=== PATIENT | male | born 1985 | race Caucasian/White ===

== ENCOUNTER 2023-04-20 17:39 | Observation (INO) | payer BC, SELFPAY ==
--- NOTE | ~2023-04-20 | US_ITS ---
EXAMINATION: US carotid duplex BI DATE: 04/21/2023 14:17 INDICATION: Diplopia. Stroke. TECHNIQUE: Grayscale, color Doppler, and pulsed Doppler images of the cervical carotid arteries were obtained. The degree of vessel stenosis is placed in one of the following categories: normal, <50%, 5 0-69%, >=70% but less than near-occlusion, near-occlusion, or total occlusion. Note that percent sten osis relative to normal distal artery lumen diameter is indirectly measured from velocity measurement s as described by Mono, et al. Radiology 2003; 229:340-346. COMPARISON: CTA 04/21/23 FINDINGS: RIGHT: The right common carotid artery (CCA) peak systolic velocity (PSV) is 109 cm/s. The right internal ca rotid artery (ICA) PSV is 51 cm/s. The right ICA end-diastolic velocity (EDV) is 19 cm/s. The right I CA/CCA PSV ratio is 0.5. Grayscale and color Doppler images yield an estimate of <50% diameter reduct ion from plaque in the ICA. There is antegrade flow in the right vertebral artery. LEFT: The left CCA PSV is 117 cm/s. The left ICA PSV is 47 cm/s. The left ICA EDV is 23 cm/s. The left ICA/ CCA PSV ratio is 0.4. Grayscale and color Doppler images yield an estimate of <50% diameter reduction from plaque in the ICA. There is antegrade flow in the left vertebral artery. IMPRESSION: 1. <50% stenosis in the right internal carotid artery. 2. <50% stenosis in the left internal carotid artery. Reviewed, dictated and finalized at location E.
--- NOTE | ~2023-04-20 | XR_ITS ---
EXAMINATION: XR chest 2V Exam Date/Time: 04/20/2023 18:05 CDT HISTORY: HTN- Comparison: X-ray right RIBS with chest 09/24/2013. RESULT: Lines, tubes, and devices: None. Lungs and pleura: Clear. Cardiomediastinal silhouette: Stable. Other: No acute osseous or upper abdominal finding. IMPRESSION: No acute cardiopulmonary process. Reviewed, dictated and finalized at location K.
--- NOTE | ~2023-04-20 | CT_ITS ---
EXAMINATION: CTA brain carotid DATE: 04/20/2023 21:13 INDICATION: Intermittent left eye vision loss TECHNIQUE: Computed tomographic angiography (CTA) of the head was performed without and with 100 mL O mnipaque-350 intravenous contrast. CTA of the neck was performed with intravenous contrast. Automated exposure control and iterative reconstruction technique were employed. The dose-length product was 1 682.63 mGy-cm. Maximum intensity projection and volume rendered 3D-reconstructions were created by santos bauman technologist on a separate workstation. COMPARISON: None. FINDINGS: CT BRAIN: No acute large vessel infarct, intracranial hemorrhage, mass, or hydrocephalus. CTA HEAD: No large vessel occlusion, aneurysm, high flow vascular malformation, nidus or extravasation. Symmetr ic parenchymal enhancement. Patent cerebral veins. CTA NECK: Aortic arch and proximal great vessels: Normal arch anatomy. No plaque. Right common carotid, carotid bifurcation, and internal carotid artery: No plaque.There is 0% stenosi s of the proximal right internal carotid artery relative to normal distal artery lumen diameter (NASC ET criteria). Left common carotid, carotid bifurcation, and internal carotid artery: No plaque.There is 0% stenosis of the proximal left internal carotid artery relative to normal distal artery lumen diameter (NASCET criteria). Vertebral arteries: No significant plaque. Long segment uniform narrowing of the distal right vertebr al artery beginning at the level of the right C2 foramen, abruptly transitioning to normal after exit ing the right C1 foramen (the majority of the right V3 segment). Long segment uniform narrowing of th e distal left vertebral artery beginning at the entrance of the left C1 foramen and abruptly transiti oning to normal after exiting the left C1 foramen (the distal half of the left V3 segment). Vertebral arteries co-dominant. Other findings: None. IMPRESSION: No acute intracranial process. No large vessel infarct. No large vessel occlusion. No significant carotid stenosis. Bilateral V3 segment vertebral artery narrowing. In the absence of traumatic history, this most likel y represents hypoplasia/normal variant. Reviewed, dictated and finalized at location K. IMPRESSION: No acute intracranial process. No large vessel infarct. No large vessel occlusi on. No significant carotid stenosis. Bilateral V3 segment vertebral artery narrowing. 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
--- NOTE | ~2023-04-20 | MR_ITS ---
MRI of the brain Clinical History: Transient vision loss Technique: Axial and sagittal T1-weighted images were acquired. These were followed by axial T2-weigh nhan, diffusion weighted, gradient, and FLAIR images. Following intravenous administration of 13 cc Mu ltiHance gadolinium, T1-weighted fat-sat imaging was performed in the axial and coronal planes. Findings: There are several scattered small foci of restricted diffusion at the posterior, inferior r ight cerebellum, compatible small areas of acute infarct. No other restricted diffusion identified. N o intracranial hemorrhage or mass lesion seen. Ventricles and subarachnoid spaces are unremarkable. Orbits are unremarkable. Paranasal sinuses and m astoid air cells are clear. Major intracranial flow voids appear intact. Sagittal midline structures are intact. No abnormal postcontrast enhancement identified. IMPRESSION: Small focal areas of acute infarct in the right cerebellum, in the PICA distribution. Reviewed, dictated and finalized at location . IMPRESSION: Small focal areas of acute infarct in the right cerebellum, in the PICA distrib ution.
--- NOTE | ~2023-04-20 | CT_ITS ---
EXAMINATION: CTA brain carotid DATE: 04/21/2023 14:00 INDICATION: Diplopia. TECHNIQUE: Computed tomographic angiography (CTA) of the head was performed without and with 100 mL O mnipaque-350 intravenous contrast. CTA of the neck was performed with intravenous contrast. Automated exposure control and iterative reconstruction technique were employed. The dose-length product was 1 644.44 mGy-cm. Maximum intensity projection and volume rendered 3D-reconstructions were created by santos bauman technologist on a separate workstation. COMPARISON: CT 04/20/2023, brain MRI 04/21/2023 FINDINGS: HEAD CTA: There is no intracranial hemorrhage, acute infarction, or abnormal intracranial mass lesion . The ventricles are normal in size. 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 The paranasal sinu ses are clear. The mastoid air cells are normal. The orbits are normal. The vertebral arteries are co dominant. There is no significant stenosis of the basilar artery or posterior cerebral arteries. Ther e is no significant stenosis of intracranial internal carotid arteries or anterior or middle cerebral arteries. Anterior communicating artery is normal. The posterior communicating arteries are normal. There is no aneurysm. NECK CTA: There is mild scarring at the lung apices. There are no pathologically enlarged lymph nodes . 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 There is plaque and proximal left internal carotid artery. There is 0% s tenosis of the proximal right internal carotid artery relative to normal distal artery lumen diameter (NASCET criteria). There is 0% stenosis of the proximal left internal carotid artery relative to nor mal distal artery lumen diameter. There is mild cervical spondylosis. IMPRESSION: 1. No infarct visible by CT. 2. 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 3. 0% stenosis of the proximal internal carotid arteries relative to normal distal artery lumen diame ters (NASCET criteria). Reviewed, dictated and finalized at location E. IMPRESSION: 1. No infarct visible by CT. 2. 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 3. 0% stenosis of the proximal internal carotid arteries relative to normal dis lori artery lumen diameters (NASCET criteria).
[2023-04-20 17:44] VITALS: BP 155/117; PULSE 138; RESP 18; TEMP 35.5; O2SAT 98
--- NOTE | 2023-04-20 17:52 | ECG_ITS ---
Measurements Intervals [place] Rate: 120 P: 44 W[place]: 100 QRS: 39 QRSD: 80 T: 72 QT: 302 QTc: 427 Interpretive Statements SINUS TACHYCARDIA WITH SHORT WY INTERVAL NONSPECIFIC T-WAVE ABNORMALITY ABNORMAL ECG NO PREVIOUS ECG AVAILABLE FOR COMPARISON Electronically Signed On 04-21-2023 9:44:15 CDT by Harry Paredes M.D.
[2023-04-20 18:16] LABS: Basophils Absolute Auto 0.1 K/mm3 (0.0-0.1); Basophils Percent Auto 0.5 % (0.2-1.2); Eosinophils Absolute Auto 0.2 K/mm3 (0-0.3); Eosinophils Percent Auto 1.5 % (0-4.4); Hematocrit 53.3 % (42.0-52.0); Hemoglobin 18.3 g/dL (14.0-18.0); Immature Granulocyte Absolute 0.03 K/mm3 (0.00-0.031); Immature Granulocyte Percent A 0.3 % (0-0.5); Lymphocytes Absolute Auto 2.25 K/mm3 (0.9-3.2); Mean Corpuscular HGB Conc 34.3 g/dl (32-36); Mean Corpuscular Volume 87.2 fl (80-100); Monocytes Percent Auto 9.4 % (2.6-8.5); Neutrophils Absolute Auto 6.8 K/mm3 (1.3-6.7); Neutrophils Percent Auto 66.3 % (45.5-73.1); Platelet Count Result 423 k/mm3 (150-375); Red Blood Count 6.11 M/mm3 (4.6-6.20); Red Cell Distribution Width 12.1 % (11.5-14.5); White Blood Count 10.2 K/mm3 (4.5-10.0)
[2023-04-20 18:27] LABS: INR 0.9; Prothrombin Time 12.6 Seconds (11.1-14.7)
[2023-04-20 18:28] LABS: Partial Thromboplastin Time 28.5 SECONDS (22.3-36.8)
[2023-04-20 18:32] LABS: Alanine Aminotransferase 26 U/L (6-50); Albumin Level 5.2 g/dL (3.5-5.1); Alkaline Phosphatase 71 U/L (38-126); Anion Gap 12 mmol/L (8-16); Aspartate Amino Transferase 32 U/L (17-59); Bilirubin,Total 0.8 mg/dL (0.2-1.3); Blood Urea Nitrogen 16 mg/dL (9-20); Calcium 9.2 mg/dL (8.4-10.2); Carbon Dioxide 27 mmol/L (22-30); Chloride 98 mmol/L (98-107); Estimated CRCL calculation 87 ml/min; Estimated Glomerular Filt Rate > 60; Glucose 135 mg/dL (65-110); Lipase 97 U/L (23-300); Potassium 4.4 mmol/L (3.4-5.0); Sodium 137 mmol/L (137-145)
[2023-04-20 18:38] LABS: Troponin I < 0.012 ng/mL (0.000-0.034)
[2023-04-20 19:47] VITALS: BP 193/128; PULSE 117; RESP 19; TEMP 36.9; O2SAT 98
--- NOTE | 2023-04-20 19:50 | ED.RECABL ---
HPI - Recheck/Abnormal Lab/Rx General Chief Complaint: Recheck/Abnormal Lab/Rx Stated Complaint: high blood pressure Time Seen by Provider: 04/20/23 19:50 Source: patient and family Mode of arrival: ambulatory Limitations: no limitations History of Present Illness HPI narrative: 37 years old white male came to the emergency room with his mom by private car complaining of sudden onset of numbness all over his body 6 days ago. Lasted for few seconds. 1 day later been having intermittent blurry vision both eyes or when I, loss of vision mainly on the left eye, usually last 10 to 15 minutes each time. Last episode was today prior to arrival to the emergency room. Currently his main complaint is occipital headache. Patient still me that he been having elevated blood pressure for at least 10 years, never been treated for it, went [facility] yesterday and had negative CT scan of the head and did not like to go back to them again, and was discharged on hydrochlorothiazide and amlodipine. Patient does not have a family physician. Patient tested positive for COVID on April 02 with fever, chills, dry cough, loss of taste and smell and occipital headache. All the symptoms are resolved except the occipital headache which is still lingering Related Data Allergies Allergy/AdvReac Type Severity Reaction Status Date / Time No Known Allergies Allergy Verified 04/20/23 19:54 Review of Systems Review of Systems: All systems reviewed & are unremarkable except as noted in HPI and below Exam Narrative: General appearance: Well-developed, well-nourished Skin: Normal color Head: Normocephalic, nontraumatic Eyes: Clear conjunctiva ENT: Oropharynx normal, ears normal, nose normal Neck: Supple, nontender Chest and respiratory: Airway patent, no respiratory distress, no accessory muscle use Heart: Regular rate/rhythm Abdomen: Soft, nontender, no organomegaly, quiet bowel sounds Vascular: Normal peripheral pulses, normal capillary refill. 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 Blood pressure is 153/104, heart rate 100 bpm. Date: 04/20/23 Time: 23:57 Consultations Consultation #1: DR HIGHTOWER Fixture Builder at [facility] would love to see the patient but no bed available at this time and patient cannot be placed on waiting list. Date: 04/20/23 Time: 23:59 Vital Signs Vital signs: Vital Signs Temperature 35.5 C L 04/20/23 17:44 Pulse Rate 138 H 04/20/23 17:44 Respiratory Rate 18 04/20/23 17:44 Blood Pressure 155/117 H 04/20/23 17:44 Pulse Oximetry 98 04/20/23 17:44 Oxygen Delivery Room Air 04/20/23 17:44 Temperature 36.9 C 04/20/23 19:47 Pulse Rate 106 H 04/20/23 22:18 Respiratory Rate 15 04/20/23 22:18 Blood Pressure 157/114 H 04/20/23 22:18 Pulse Oximetry 100 04/20/23 22:18 Oxygen Delivery Room Air 04/20/23 19:47 MDM - Recheck/Abnormal Lab/Rx MDM Narrative Medical decision making narrative: 37 years old white male came to the emergency room by private car with intermittent left vision loss started 5 days ago. On average 2-3 times a day. Patient tested positive for COVID 18 days ago most of the symptoms are resolved except occipital headache. Currently patient complaining of occipital headache. Common causes of monocular transient loss of vision include thromboembolic or a stenotic vascular disease, vasospasm, retinal migraine, closed angle glaucoma, and papilledema, Work-up
[2023-04-20] MEDS: LABETALOL HCL INJ 100 MG/20 ML VIAL 20 MG IV PUSH ×2 (20:28→23:29)
[2023-04-20] MEDS: ASPIRIN 81 MG CHEWABLE TABLET 324 MG PO (20:28)
[2023-04-20 20:45] LABS: CRP < 0.5 mg/dL (<1.0)
[2023-04-20 20:52] LABS: D Dimer 0.28 ug/mL (<0.48)
[2023-04-20 21:18] LABS: Erythrocyte Sedimentation Rate 1 mm/hr (0-20)
[2023-04-20 21:46] LABS: Appearance Urine Clear (Clear); Bacteria Urine None Seen /hpf; Bilirubin Urine Negative (Negative); Blood Urine 1+ (Negative); Color Urine Yellow (Yellow); Glucose Urine UA Negative (Negative); Ketones Urine Negative (Negative); Leukocyte Esterase Ur Negative LEU/UL (Negative); Nitrate Urine Negative (Negative); Non Pathogenic Casts 0-2; Protein Urine 1+ mg/dL (Negative); RBC Urine 0-2 /hpf (0-2); Specific Grav Ur 1.025 (1.001-1.035); Squamous Epithelial Cell Urine None seen /hpf (Few); WBC Urine 0-5 /hpf
[2023-04-20 21:52] LABS: Add Urine Microscopic? YES
--- NOTE | 2023-04-20 21:55 | PC.NURSE ---
Visual acuity done by this RN. Pt 20/25 L eye, 20/25 R eye.
[2023-04-20 22:01] LABS: Amphetamine Screen Urine Negative (Negative); Barbiturate Screen Urine Negative (Negative); Benzodiazepines Screen Urine Negative (Negative); Cannabinoid Screen Urine Negative (Negative); Cocaine Screen Urine Negative (Negative); Methadone Screen Urine Negative (Negative); Opiate Screen Urine Negative (Negative); Phencyclidine Screen Urine Negative (Negative)
[2023-04-20 22:02] VITALS: BP 169/116; PULSE 108; RESP 15; O2SAT 100
[2023-04-20 22:14] LABS: Troponin I < 0.012 ng/mL (0.000-0.034)
[2023-04-20 22:18] VITALS: BP 157/114; PULSE 106; RESP 15; O2SAT 100
--- NOTE | 2023-04-20 23:27 | PC.NURSE ---
2239: [facility] transfer center called, declined pt d/t no bed availability 2245: [facility] transfer center called, also decline pt d/t no bed availability
--- NOTE | 2023-04-20 23:35 | PM.IMHP ---
H&P: HPI History of Present Illness Date/Time: 04/20/23 23:35 Chief Complaint: Patient came to the ER for evaluation for persistent intermittent blurry vision in both eyes Narrative: He is a very pleasant young [place] who was complaining of sudden onset of numbness all over his body 6 days ago that lasted for a few seconds. This episode was followed by intermittent blurry vision in both eyes with loss of vision mainly in the left eye usually lasting 10-15 minutes each time. Patient got concerned and went to [facility], where he was worked up with a CT scan and was sent home after negative workup. He had worsening of his symptoms today and decided to come back to the ER for evaluation. Workup was done which showed a negative CTA Head and Neck, but blood work findings were consistent with hyperviscosity syndrome which could explain his symptoms. He also gives a history of being diagnosed with COVID-19 on April 02 on home- testing kit. He complains of intermittent pain in the back of the head at times. He was given aspirin in the ER which helped with his symptoms. He is being admitted for medical management, observation and further evaluation by Oncology and Neurology. Review of Systems Review of Systems: Patient complains of intermittent blurred vision, transient vision loss more in left eye than right, intermittent pain in the back of her head. He denies any chest pain, palpitation, fever rigor chills, nausea and vomiting. All systems reviewed & are unremarkable except as noted in HPI and below PMFSH Past Medical History Medical History (Updated 04/21/23 @ 00:53 by Robson Begum MD) Post covid-19 condition, unspecified Sudden loss of vision Meds Home Medications and Allergies Home Medications Medication Instructions Recorded Confirmed Type amlodipine 5 mg tablet 5 mg PO DAILY 04/21/23 04/21/23 History hydrochlorothiazide 25 mg tablet 25 mg PO DAILY 04/21/23 04/21/23 History Allergies Allergy/AdvReac Type Severity Reaction Status Date / Time No Known Allergies Allergy Verified 04/20/23 19:54 Vital Signs Vital Signs - 24 hr 04/20/23 17:44 04/20/23 19:47 04/20/23 22:02 Temperature 35.5 C L 36.9 C Pulse Rate 138 H 117 H 108 H Respiratory Rate 18 19 15 Blood Pressure 155/117 H 193/128 H 169/116 H Pulse Oximetry 98 98 100 Oxygen Delivery Room Air Room Air 04/20/23 22:18 Temperature Pulse Rate 106 H Respiratory Rate 15 Blood Pressure 157/114 H Pulse Oximetry 100 Oxygen Delivery Exam Narrative: PHYSICAL EXAMINATION: Vital signs: Please see the chart. General physical exam: Well-developed, well-nourished, in no acute distress. Head/eyes: Atraumatic, EOMI, PERRLA. ENT: Moist mucous membranes, nasal passages clear. Neck: Supple, full range of motion, trachea midline. CVS: S1 + S2 + 0, regular rate and rhythm, no murmurs Respiratory: Bilaterally fair air entry in both lung roe, mild B/L crackles, symmetric chest expansion, no distress Abdomen: Soft, non-tender, bowel sounds +ve, no organomegaly Extremities: No clubbing, no cyanosis, no edema, no calf tenderness Musculoskeletal: Moves all, adequate range of motion, no muscle spasms Skin: Warm, dry, no jaundice, no cyanosis Neurological: Awake, alert, oriented x 3, cranial nerves II-XII intact, no focal neurological deficits Psychiatric: Normal mood, non suicidal H&P: Results Labs Labs: Short CBC 04/20/23 Range/Units 17:57 WBC 10.2 H (4.5-10.0) K/mm3 Hgb 18.3 H (14.0-18.0) g/dL Hct 53.3 H (42.0-52.0) % Plt Count 423 H (150-375) k/mm3 BMP 04/20/23 17:58 Sodium 137 Potassium 4.4 Chloride 98 Carbon Dioxide 27 BUN 16 Creatinine 1.00 Glucose 135 H Calcium 9.2 Cardiac Enzymes 04/20/23 04/20/23 Range/Units 17:58 21:40 Troponin I < 0.012 < 0.012 (0.000-0.034) ng/mL Liver Function 04/20/23 Range/Units 17:58 Total Bilirubin 0.8 (0.2-1.3) mg/dL AST 32
[2023-04-21] VITALS (7 sets, daily range): BP systolic 135–151; BP diastolic 90–104; PULSE 90–113; RESP 15–18; TEMP 36.6–36.9; O2SAT 97–100; BMI 22.6
--- NOTE | 2023-04-21 00:50 | ADMGEN ---
This patient, Harry Brantley, was admitted to Medical Room 252-01. Patient/family oriented to hospital policies and general routines including ID bracelet, bed and alarms, visiting hours, pain management, procedures, bathroom and other care routines, personal items, smoking policy, room service/diet, and visiting hours. Information on how to activate the Rapid Response Team has been discussed. Patient/Family are encouraged to report perceived risks to care and to ask questions if they do not understand what they are told or what they should do.
[2023-04-21 01:30] LABS: Troponin I < 0.012 ng/mL (0.000-0.034)
[2023-04-21 06:43] LABS: Basophils Absolute Auto 0.1 K/mm3 (0.0-0.1); Basophils Percent Auto 0.5 % (0.2-1.2); Eosinophils Absolute Auto 0.1 K/mm3 (0-0.3); Eosinophils Percent Auto 1.1 % (0-4.4); Hematocrit 52.5 % (42.0-52.0); Hemoglobin 17.2 g/dL (14.0-18.0); Immature Granulocyte Absolute 0.04 K/mm3 (0.00-0.031); Immature Granulocyte Percent A 0.3 % (0-0.5); Lymphocytes Percent Auto 22.3 % (18.3-44.2); Mean Corpuscular HGB Conc 32.8 g/dl (32-36); Mean Corpuscular Hemoglobin 29.7 pg (26-34); Mean Corpuscular Volume 90.7 fl (80-100); Mean Platelet Volume 10.1 fl (7.4-10.4); Monocytes Absolute Auto 1.1 K/mm3 (0.1-0.6); Monocytes Percent Auto 8.5 % (2.6-8.5); Neutrophils Absolute Auto 8.7 K/mm3 (1.3-6.7); Neutrophils Percent Auto 67.3 % (45.5-73.1); Platelet Count Result 350 k/mm3 (150-375); Red Blood Count 5.79 M/mm3 (4.6-6.20); Red Cell Distribution Width 12.2 % (11.5-14.5)
[2023-04-21 06:53] LABS: Anion Gap 13 mmol/L (8-16); Blood Urea Nitrogen 15 mg/dL (9-20); Carbon Dioxide 27 mmol/L (22-30); Chloride 97 mmol/L (98-107); Estimated CRCL calculation 96 ml/min; Estimated Glomerular Filt Rate > 60; Glucose 109 mg/dL (65-110); Magnesium 2.6 mg/dL (1.6-2.3); Phosphorus 5.2 mg/dL (2.5-4.5); Potassium 4.4 mmol/L (3.4-5.0); Sodium 137 mmol/L (137-145)
[2023-04-21] MEDS: hydroCHLOROthiazide 25 MG TABLET PO (08:05)
[2023-04-21] MEDS: amLODIPine BESYLATE 5 MG TABLET PO (08:05)
[2023-04-21] MEDS: ASPIRIN 81 MG CHEWABLE TABLET PO (08:05)
[2023-04-21] MEDS: ACETAMINOPHEN 325 MG TABLET 650 MG PO ×2 (08:22→13:18)
--- NOTE | 2023-04-21 09:35 | PM.IMPN ---
Progress Note: A&P Assessment and Plan (1) Acute stroke due to ischemia: Code(s): I63.9 - Cerebral infarction, unspecified Status: Acute Assessment and Plan: 04/21: Results of MRI as follows: Small focal areas of acute infarct in the right cerebellum, in the PICA distribution. (2) Hyperlipemia, mixed: Code(s): E78.2 - Mixed hyperlipidemia Status: Acute Assessment and Plan: Lipid panel added to morning labs shows elevated triglycerides elevated total cholesterol and LDL 155. Added rosuvastatin. (3) Hyperviscosity syndrome: Status: Acute Assessment and Plan: Possible polycythemia vera given elevation and hemoglobin hematocrit on initial CBC. Hematology consulted. (4) Transient vision disturbance: Code(s): H53.9 - Unspecified visual disturbance Status: Acute Assessment and Plan: Vision loss first in left eye, later recurrence in both eyes-worse on the left, now vision restored (5) Post covid-19 condition, unspecified: Code(s): U09.9 - Post COVID-19 condition, unspecified Status: Acute Assessment and Plan: Patient had positive home swab on April 02 and now new neurologic symptoms Time Spent With Patient Time with patient: Greater than 35 minutes Subjective Date/time seen: 04/21/23 09:35 Interval history: This is a 37-year-old male with a known past history hypertension who states that he recently had COVID a few weeks ago and then several days ago developed left-sided numbness and temporary vision loss that ultimately improved and then recurred with bilateral vision loss which has also improved. Patient went to another hospital negative CT scan was discharged for PCP follow-up. When symptoms recurred patient came to our emergency department was admitted for stroke workup. MRI results this morning show the patient has acute stroke in the right PICA region. Consults for Dr. Lockhart and Neurology due to suspected polycythemia vera and hyperviscosity syndrome as cause of recurrent neurologic symptoms. Patient denies any pain or current symptoms of vision disturbance, weakness, pain, difficulty swallowing or any other acute concerns. RN called at 1345 stated that patient had bilateral blurry vision. When he got up to go to the restroom he was severely off balance. Dr. Gaviria also made aware. CTA ordered. At 1420 I saw the CTA report showing vertebral artery dissections. Review of Systems Review of Systems: All systems reviewed & are unremarkable except as noted in HPI and below Exam Narrative: General physical exam: Well-developed, well-nourished, in no acute distress. Head/eyes: Atraumatic, EOMI, PERRLA. ENT: Moist mucous membranes, nasal passages clear. Neck: Supple, full range of motion, trachea midline. CVS: S1 + S2, regular rate and rhythm, no murmurs Respiratory: Bilaterally fair air entry in both lung roe, symmetric chest expansion, no distress Abdomen: Soft, non-tender, bowel sounds, no organomegaly Extremities: No clubbing, no cyanosis, no edema, no calf tenderness Musculoskeletal: Moves all extremities, adequate range of motion, no muscle spasms Skin: Warm, dry, no jaundice, no cyanosis Neurological: Awake, alert, oriented x 3, no focal neurological deficits, NIH stroke scale 0 Psychiatric: Normal mood, normal affect Objective Data Vital Signs Vital Signs: Vital Signs - 24 hr 04/20/23 17:44 04/20/23 19:47 04/20/23 22:02 Temperature 35.5 C L 36.9 C Pulse Rate 138 H 117 H 108 H Respiratory Rate 18 19 15 Blood Pressure 155/117 H 193/128 H 169/116 H Pulse Oximetry 98 98 100 Oxygen Delivery Room Air Room Air 04/20/23 22:18 04/21/23 00:21 04/21/23 00:37 Temperature Pulse Rate 106 H 99 101 H Respiratory Rate 15 15 18 Blood Pressure 157/114 H 151/97 H 148/104 H Pulse Oximetry 100 98 100 Oxygen Delivery 04/21/23 01:04 04/21/23 01:38 04/21/23 04:00 Temperature 36.6 C 36.7 C Pulse Rate 99 101 H 90 Re
[2023-04-21 10:23] LABS: Cholesterol 242 mg/dL (0-200); HDL Direct 46 mg/dL; Triglycerides 210 mg/dL (<150)
[2023-04-21 10:34] LABS: LDL Cholesterol Direct 155 mg/dL
[2023-04-21 10:56] LABS: Hemoglobin A1C 5.2 % (<5.7)
[2023-04-21] MEDS: ENOXAPARIN 40 MG/0.4 ML SYRINGE SUB-Q (11:03)
[2023-04-21] MEDS: ROSUVASTATIN 20 MG TABLET PO (11:03)
--- NOTE | 2023-04-21 11:33 | WPDNEURCNPN ---
Assessment and Plan Assessment and plan (1) Acute stroke due to ischemia: Code(s): I63.9 - Cerebral infarction, unspecified Status: Acute (2) Hyperviscosity syndrome: Status: Acute (3) Hyperlipemia, mixed: Code(s): E78.2 - Mixed hyperlipidemia Status: Acute (4) Hypertension: Code(s): I10 - Essential (primary) hypertension Status: Acute Plan Mr. Brantley is a 37 year old male who presented due to episode of full body numbness and transient episodes of visual disturbances. Ulimately found to have R cerebellar infarct. Etiology could be due to hyperviscosity given elevated hgb. He also has a history of recent COVID infection which could have been a contributing factor. Blood pressure was also quite high on admission, which is typically the cause of small vessel stroke. - Continue Aspirin 81mg daily - Add Plavix 75mg daily - Surface echocardiogram with bubble study - LDL is 155, goal <70; will need statin - Will check hypercoagulability labs to rule out other causes of early stroke Consult date: 04/21/23 Reason for consult: Stroke HPI: Harry Brantley is a 37 year old male with no significant past medical history presenting for evaluation of numbness and visual disturbance. About a week ago, patient had sudden onset full body numbness that lasted several seconds. He denied any focal weakness or speech changes. Afterwards he developed blurriness of the vision and loss of vision in the left eye intermittently, for about 10-15 minutes at a time. Patient was diagnosed with COVID infection about two weeks ago. He presented to the Emergency department yesterday due to persistence of the visual symptoms. He also complained of an occipital headache. His blood pressure in the ER was in the 190s systolic, which was treated with labetalol. CT head was negative for acute process. CTA/brain carotid showed bilateral V3 segment narrowing but no stenosis or occlusion in ano other arteries. LDL level is 155. A1c is 5.2. Patient does not smoke. MRI brain showed acute infarct in the right cerebellum. Patient is reporting some balance issues and feeling unsteadiness. He is no longer having numbness or visual changes since he has been admitted. Blood pressure has been more stable as well. Hgb on admission was 18.3 so he is being worked up for hyperviscosity. Patient and his mother deny any family history of abnormal clotting. There is no family history of recurrent miscarriages or early stroke/LA. Review of Systems Constitutional: Constitutional: Denies chills, Denies fever(s) and Denies weight loss Eyes: Eyes: Denies diplopia and Denies loss of vision ENT: Denies dizziness, Denies hearing loss and Denies tinnitus Cardiovascular: Cardiovascular: Denies chest pain, Denies syncope and Denies dyspnea Respiratory: Respiratory: Denies cough, Denies dyspnea and Denies wheezing Gastrointestinal: Gastrointestinal: Denies abdominal pain, Denies change in bowel habits and Denies vomiting Genitourinary: Genitourinary: Denies urinary incontinence Musculoskeletal: Musculoskeletal: Denies arthralgias and Denies joint swelling Integumentary/Breasts: Skin/Breast: Denies new lesions and Denies rash Neurologic: Reports as per HPI, Denies dizziness, Denies syncope and Denies loss of vision Psychiatric: Psychiatric: Denies anxiety and Denies depression Endocrine: Endocrine: Denies cold intolerance and Denies heat intolerance Hematologic/Lymphatic: Hematologic/Lymphatic: Denies easy bleeding and Denies easy bruising Allergic/Immunologic: Allergic/Immunologic: Denies no additional allergic/immunologic complaints and Denies wheezing PMFSH Past Medical History Medical History Post covid-19 condition, unspecified Sudden loss of vision Social History Social History Smoking status: Never smoker Alcohol intake: never Shook
[2023-04-21 14:07] LABS: Glucose Point of Care 150 mg/dl (65-105)
--- NOTE | 2023-04-21 16:08 | PM.TDS ---
Transfer Discharge Sum: Prov Provider Date of admission: 04/20/23 23:33 Primary care physician: RESIDENTIAL TREATMENT COUNSELOR PHYSICIAN Admitting clinician: Robson Begum MD Consults: 04/20/23 23:36 Consult to Physician Routine Comment: Consulting Provider: Rohan Howard Reason for consultation: Monocular transient loss of vision Has provider been notified: Yes Consult to Physician Routine Comment: for 04.21.23 @ 0740--/us Consulting Provider: Armando Lockhart pharmacy account director/MD group to consult: Call Dr. Lockhart at 7 AM Reason for consultation: Hyperviscosity syndrome, polycythemia vera Has provider been notified: Yes Attending physician on discharge: Camila Lisa Discharging clinician: [place] Anticipated date of transfer: 04/21/23 Receiving physician/facility: [facility] Dr. Syed Chance in ER and Dr. Lucero with Stroke Neurology DS: Admitting Diagnosis Discharge Date 04/21/2023 Admitting Diagnosis Polycythemia vera Hyperviscosity syndrome Vision disorder Post COVID-19 condition unspecified Sudden loss of vision DS: Discharge Diagnosis Discharge Diagnosis (1) Dissecting hemorrhage of both vertebral arteries: Code(s): I77.74 - Dissection of vertebral artery Status: Acute (2) Cerebellar stroke, acute: Code(s): I63.9 - Cerebral infarction, unspecified Status: Acute (3) Hypertension: Code(s): I10 - Essential (primary) hypertension Status: Acute (4) Transient vision disturbance: Code(s): H53.9 - Unspecified visual disturbance Status: Acute (5) Hyperviscosity syndrome: Status: Acute (6) Post covid-19 condition, unspecified: Code(s): U09.9 - Post COVID-19 condition, unspecified Status: Acute Transfer Discharge Sum: Med Medications Active and Home Medications: Home Medications amlodipine 5 mg tablet 5 mg PO DAILY 04/21/23 [History Confirmed 04/21/23] hydrochlorothiazide 25 mg tablet 25 mg PO DAILY 04/21/23 [History Confirmed 04/21/23] Active Medications Acetaminophen (Acetaminophen 325 Mg Tablet) 650 mg PO Q4H PRN PRN Reason: Pain or Fever Last Admin: 04/21/23 13:18 Dose: 650 mg Amlodipine Besylate (Amlodipine Besylate 5 Mg Tablet) 5 mg PO DAILY [facility] Last Admin: 04/21/23 08:05 Dose: 5 mg Aspirin (Aspirin 81 Mg Chewable Tablet) 81 mg PO DAILY@0800 [facility] Last Admin: 04/21/23 08:05 Dose: 81 mg Clopidogrel Bisulfate (Clopidogrel Bisulfate 75 Mg Tablet) 75 mg PO QAM [facility] Stop: 05/13/23 09:00 Enoxaparin Sodium (Enoxaparin 40 Mg/0.4 Ml Syringe) 40 mg SUB-Q DAILY [facility] Last Admin: 04/21/23 11:03 Dose: 40 mg Hydrochlorothiazide (Hydrochlorothiazide 25 Mg Tablet) 25 mg PO DAILY [facility] Last Admin: 04/21/23 08:05 Dose: 25 mg Perflutren Lipid Microsphere (Perflutren Lipid Microspheres 1.5 Ml Vial Diluted To 10 Ml Total Volume) 0 ml IV PUSH ONCE PRN; Protocol PRN Reason: adequate visualization Stop: 04/24/23 09:46 Rosuvastatin Calcium ([facility]astatin 20 Mg Tablet) [facility] Admin: 04/21/23 11:03 Dose: 20 mg Transfer Discharge Sum: Hosp Hospital Course Hospital course: Harry Brantley is a 37 year old male admitted to the hospital for stroke rule out and Hematology consult for transient vision loss initially in the left with accompanied full body numbness that happened within the last week and subsequent episode of bilateral vision loss that also recovered without intervention. Patient had MRI 1st this morning which did show small areas right cerebellar stroke. Patient was initially feeling well had no symptoms ongoing and no ataxia. Patient did receive aspirin upon admission. Lipid panel showed hyperlipidemia. Patient started on rosuvastatin. Neurology saw patient recommended starting Plavix and she ordered a 2nd CT angiogram of the head neck which resulted in bilateral vertebral artery dissections with total occlusion the right and severe stenosis of the left. When compared to
[2023-04-24 12:29] LABS: Factor VIII Activity 138 % normal (50-180)
[2023-04-24 20:27] LABS: Homocysteine 9.4 umol/L (<11.4)
[2023-04-25 18:35] LABS: Lipoprotein A <10 nmol/L (<75)
[2023-04-25 20:18] LABS: Antithrombin III Activity 111 % normal (80-135)
[2023-04-25 21:51] LABS: Lupus dRVVT Screen 33 sec (<=45); PTT-LA Screen 34 sec (<=40)
[2023-04-29 22:13] LABS: Factor V (Leiden) Mutation NEGATIVE
[2023-05-04 04:47] LABS: Anti Cardio Antibody IgM <2.0 MPL-U/mL (<20.0); Anti Cardiolipin Antibody IgA <2.0 APL-U/mL (<20.0); Anti Cardiolipin Antibody IgG <2.0 GPL-U/mL (<20.0)
== END 2023-04-21 15:35 ==
LOC: ANHED 04-21 00:03 → ANH2MED 04-21 00:06
PROVIDERS: Nurse Practitioner; Student in an Organized Health Care Education/Training Program; Admitting Provider Family Medicine; Emergency Provider Emergency Medicine; Visit Provider Family Medicine
DX: I63.9 Cerebral infarction, unspecified (principal); I10 Essential (primary) hypertension; D75.1 Secondary polycythemia; U09.9 Post COVID-19 condition, unspecified; H53.9 Unspecified visual disturbance; E78.2 Mixed hyperlipidemia; R94.31 Abnormal electrocardiogram [ECG] [EKG]; Z79.899 Other long term (current) drug therapy
CPT/HCPCS: 36415; 70496; 70498; 70553; 71046; 80048; 80053; 80061; 80307; 81001; 81240; 81241; 81291; 82948; 83036; 83090; 83690; 83695; 83735; 84100; 84484; 85025; 85240; 85300; 85303; 85306; 85380; 85610; 85613; 85652; 85730; 86140; 86146; 86147; 87040; 93005; 93880; 96372; 96374; 96376; 99285; A9270; A9577; G0378; J1650; Q9967

== ENCOUNTER 2023-04-28 13:15 | Emergency (ER) | payer BC, SELFPAY ==
--- NOTE | ~2023-04-28 | XR_ITS ---
EXAMINATION: XR chest 2V DATE: 04/28/2023 15:05 INDICATION: Cough. Abdominal pain. TECHNIQUE: Frontal and lateral views of the chest were obtained. COMPARISON: Chest 2 views 04/20/2023, CT abdomen and pelvis 04/28/2023 FINDINGS: There is mild atelectasis at left lung base. No pleural effusion or pneumothorax. The heart size is normal. IMPRESSION: 1. Mild atelectasis at left lung base. Reviewed, dictated and finalized at location E.
--- NOTE | ~2023-04-28 | CT_ITS ---
EXAMINATION: CT abdomen pelvis wo con DATE: 04/28/2023 14:49 INDICATION: Flank pain TECHNIQUE: Computed tomography (CT) of the abdomen and pelvis was performed without intravenous contr ast. The dose-length product (DLP) was 273.62 mGy-cm. Automated exposure control and iterative recons truction technique were employed. COMPARISON: None FINDINGS: Minimal dependent atelectasis is present in the lung bases. The heart size is normal. There is a small sliding hiatal hernia. The spleen, pancreas, gallbladder, and adrenal glands are normal. The kidneys are unremarkable. No stones are identified in the kidneys, ureters, or bladder. No hydron ephrosis or hydroureter. The appendix is normal. No pathologically enlarged abdominal or pelvic lymph nodes are identified. No free intraperitoneal gas or evidence of bowel obstruction. There is a tiny umbilical hernia containing fat. IMPRESSION: 1. No CT correlate for the patient's symptoms. Reviewed, dictated and finalized at location L.
[2023-04-28 13:23] VITALS: BP 141/98; PULSE 105; RESP 18; TEMP 37.2; O2SAT 97
--- NOTE | 2023-04-28 13:57 | ED.ABDPAIN ---
HPI - Abdominal Pain General Chief Complaint: Abdominal Pain Stated Complaint: abdominal pain Time Seen by Provider: 04/28/23 13:43 History of Present Illness HPI narrative: Patient is a 37-year-old male with history of recent bilateral vertebral artery dissection complicated by several posterior strokes here with left-sided flank pain and hematuria. Patient states that the flank pain began this morning around 5 am, located on the left side, radiating to the abdomen. He noted pain worsened with urinating. he notes that it feels similar to prior kidney stones in the past. He had many kidney stones as a child and then most recently on the right side not requiring intervention. He does note that he had some dark brown urine today after symptoms began. He denies any fever chills. He did take some Tylenol at home and the pain seemed to resolve. They did contact a PCP who he is establishing care with tomorrow and they recommended that he come into the emergency department for evaluation given he was recently started on Eliquis. Mother also notes patient had a cough this morning, which seems to have resolved. Related Data Home Medications Medication Instructions Recorded Confirmed amlodipine 5 mg tablet 5 mg PO DAILY 04/21/23 04/21/23 hydrochlorothiazide 25 mg tablet 25 mg PO DAILY 04/21/23 04/21/23 Allergies Allergy/AdvReac Type Severity Reaction Status Date / Time No Known Allergies Allergy Verified 04/28/23 13:32 Review of Systems Review of Systems: CONSTITUTIONAL: Denies fever, chills, or sweats. EYES: Denies visual changes, redness, or discharge. ENT: Denies rhinorrhea, congestion, sore throat, or otalgia. CARDIOVASCULAR: Denies chest pain, palpitations, or edema. RESPIRATORY: cough, no dyspnea. GASTROINTESTINAL: Left flank pain, Denies nausea, vomiting, or diarrhea. GENITOURINARY: Hematuria, no dysuria SKIN: Denies rash or itching. MUSCULOSKELETAL: Denies back pain, joint pain, or myalgia. NEUROLOGIC: Denies headache, numbness, or weakness. PSYCHIATRIC: Denies anxiety or depression. [facility] Past Medical History Medical History Post covid-19 condition, unspecified Sudden loss of vision Social History Social History Smoking status: Never smoker Alcohol intake: never Substance use: never Substance use type: does not use Lack of Transportation: No Lack of Food: Never True Current Housing: I Have Housing Concerned About Future Housing: No Difficulty Paying Gas/Electric Bills: No Difficulty Paying for Meds: No Currently Unemployed: No Education: Associate Degree Difficulty w/ Childcare or Family Care: No Spiritual care concerns: No Exam Narrative: GENERAL: Well-appearing, well-nourished, and in no acute distress. HEAD: Normocephalic, atraumatic. EYES: PERRLA and EOMI. ENT: Nares clear. Mucous membranes moist. NECK: Supple. CHEST: Clear to auscultation. No respiratory distress. HEART: Regular rate and rhythm. Normal peripheral pulses. ABDOMEN: Soft, nontender, nondistended. No CVA tenderness. Bruising over anterior abdomen consistent with sub q injections during prior hospitalization EXTREMITIES: Normal range of motion. No edema. SKIN: Warm, dry, no rash. NEURO: No focal deficits. Alert and oriented x3. PSYCH: Normal mood and affect. Course Course Emergency Course: Chart review performed. Patient is here with abdominal pain and hematuria. Was reportedly discharged from [facility] Tuesday night after a stroke, started on Eliquis, Lipitor, Coreg, lisinopril. He does have a history of kidney stone. Patient seen evaluated, nontoxic appearing. Patient is currently asymptomatic. Concern for possible UTI versus nephrolithiasis. Will order CT scan as well as chest x-ray given patient's mother did endorse a cough this morning as well. CBC grossly within normal limit
[2023-04-28 14:03] VITALS: BP 138/99; PULSE 96; RESP 12; O2SAT 98
[2023-04-28 14:14] LABS: Basophils Absolute Auto 0.1 K/mm3 (0.0-0.1); Basophils Percent Auto 0.7 % (0.2-1.2); Eosinophils Absolute Auto 0.4 K/mm3 (0-0.3); Hematocrit 44.9 % (42.0-52.0); Hemoglobin 15.1 g/dL (14.0-18.0); Immature Granulocyte Absolute 0.02 K/mm3 (0.00-0.031); Immature Granulocyte Percent A 0.2 % (0-0.5); Lymphocytes Percent Auto 15.5 % (18.3-44.2); Mean Corpuscular HGB Conc 33.6 g/dl (32-36); Mean Corpuscular Hemoglobin 29.6 pg (26-34); Mean Platelet Volume 9.8 fl (7.4-10.4); Monocytes Absolute Auto 0.7 K/mm3 (0.1-0.6); Monocytes Percent Auto 6.9 % (2.6-8.5); Neutrophils Absolute Auto 7.5 K/mm3 (1.3-6.7); Neutrophils Percent Auto 72.7 % (45.5-73.1); Platelet Count Result 348 k/mm3 (150-375); Red Cell Distribution Width 12.1 % (11.5-14.5); White Blood Count 10.3 K/mm3 (4.5-10.0)
[2023-04-28 14:22] LABS: Appearance Urine Clear (Clear); Bacteria Urine None Seen /hpf; Bilirubin Urine Negative (Negative); Blood Urine 3+ (Negative); Color Urine Yellow (Yellow); Glucose Urine UA Negative (Negative); Ketones Urine Negative (Negative); Leukocyte Esterase Ur Trace LEU/UL (Negative); Nitrate Urine Negative (Negative); Non Pathogenic Casts 0-2; Protein Urine 1+ mg/dL (Negative); RBC Urine >100 /hpf (0-2); Specific Grav Ur 1.017 (1.001-1.035); Squamous Epithelial Cell Urine None seen /hpf (Few); WBC Urine 0-5 /hpf; pH Urine 6.5 (5.0-9.0)
[2023-04-28 14:23] LABS: Alanine Aminotransferase 51 U/L (6-50); Albumin Level 4.5 g/dL (3.5-5.1); Alkaline Phosphatase 67 U/L (38-126); Anion Gap 9 mmol/L (8-16); Aspartate Amino Transferase 34 U/L (17-59); Bilirubin,Total 0.6 mg/dL (0.2-1.3); Blood Urea Nitrogen 13 mg/dL (9-20); Carbon Dioxide 30 mmol/L (22-30); Chloride 101 mmol/L (98-107); Estimated CRCL calculation 88 ml/min; Estimated Glomerular Filt Rate > 60; Glucose 122 mg/dL (65-110); Lipase 99 U/L (23-300); Sodium 140 mmol/L (137-145)
[2023-04-28 14:39] LABS: Add Urine Microscopic? YES
[2023-04-28 14:52] VITALS: BP 143/99; PULSE 99; RESP 16; O2SAT 98
[2023-04-28 15:53] VITALS: BP 137/95; PULSE 100; RESP 18; O2SAT 98
== END 2023-04-28 15:54 | disposition home or self-care (01) ==
PROVIDERS: Emergency Medicine; Emergency Provider Student in an Organized Health Care Education/Training Program
DX: R31.0 Gross hematuria (principal); R10.9 Unspecified abdominal pain; U09.9 Post COVID-19 condition, unspecified; Z86.73 Personal history of transient ischemic attack (TIA), and cerebral infarction without residual deficits; Z87.442 Personal history of urinary calculi
CPT/HCPCS: 36415; 71046; 74176; 80053; 81001; 83690; 85025; 99284

== ENCOUNTER 2023-05-10 09:28 | Emergency (ER) | payer BC, SELFPAY ==
--- NOTE | ~2023-05-10 | CT_ITS ---
CT ANGIOGRAM NECK AND HEAD History: CVA. Technique: Serial spiral axial images through the head and neck were obtained during arterial phase I V injection of 100 cc of Omnipaque 350. 3-D postprocessing and MIP images were then reconstructed on the remote workstation. Dose reduction technique was used on this scan by utilizing automated exposur e control and iterative reconstruction technique. The dose-length product (DLP) was 1133.60 mGy-cm. COMPARISON: 04/21/2023 CTA neck findings: There is stenosis of the distal left vertebral artery, similar to prior exam, com patible with vertebral artery dissection in this region (series 5 images [id number]). The right vertebra l artery occlusion seen on prior exam is improved, with now high-grade stenosis of the distal right v ertebral artery, consistent with vertebral artery dissection (axial images 178-201). The common carotid, internal carotid, and external carotid arteries are patent. No large vessel occlu kendrick. The proximal right internal carotid artery demonstrates 0% stenosis relative to the normal dist al artery lumen diameter. The proximal left internal carotid artery demonstrates 0% stenosis relative to the normal distal artery lumen diameter. CTA head findings: Distal vertebral arteries, basilar artery, and posterior cerebral arteries are pat ent. Distal internal carotid arteries, middle cerebral arteries, and anterior cerebral arteries are p atent. No large vessel occlusion. No stenosis or aneurysm. Impression: Bilateral distal vertebral artery dissections, as noted above. There is high-grade stenosis of the di stal right vertebral artery as opposed to complete occlusion which was present on prior exam. Left di stal vertebral or dissection is similar to prior exam. Reviewed, dictated and finalized at location M. Impression: Bilateral distal vertebral artery dissections, as noted above. There is high-gr mare stenosis of the distal right vertebral artery as opposed to complete occlus ion which was present on prior exam. Left distal vertebral or dissection is sim ilar to prior exam.
--- NOTE | ~2023-05-10 | CT_ITS ---
EXAMINATION: CT brain wo con INDICATION: Visual disturbance, headache COMPARISON: 04/21/2023 TECHNIQUE: Standard unenhanced head CT. The dose-length product (DLP) was 605.33 mGy-cm. The mA was a djusted according to patient size. Iterative reconstruction technique was employed. FINDINGS: No intracranial hemorrhage or abnormal mass lesion. There is a small area of hypoattenuatio n in the right cerebellum, consistent with small infarct described on recent MRI. The ventricles are normal. No abnormal mass effect or midline shift. The jeffries-white matter differentiation is normal. Th e basal cisterns are patent. The orbits are normal. The paranasal sinuses, mastoids and calvarium are normal. IMPRESSION: 1. Small area of hypoattenuation in the right cerebellum, consistent with known infarct. Reviewed, dictated and finalized at location L.
[2023-05-10 09:37] LABS: Glucose Point of Care 109 mg/dl (65-105)
--- NOTE | 2023-05-10 09:38 | ECG_ITS ---
Measurements Intervals [place] Rate: 91 P: 45 MN: 137 QRS: 25 QRSD: 85 T: 18 QT: 341 QTc: 421 Interpretive Statements SINUS RHYTHM NORMAL ECG COMPARED TO ECG 04/20/2023 18:02:08 SINUS RHYTHM NOW PRESENT Electronically Signed On 05-10-2023 10:25:37 CDT by Piter Wise D.O.
--- NOTE | 2023-05-10 09:39 | ED.NEUROSD ---
HPI - Neuro Symptoms/Deficit General Chief Complaint: Suspected CVA Stated Complaint: stroke Time Seen by Provider: 05/10/23 09:32 History of Present Illness HPI Narrative: 37-year-old male present emergency department for evaluation of blurred vision. Patient was initially seen on 04/20 and was admitted for a TIA/CVA work-up. CT head and CT brain carotid shows dissections of the distal vertebral arteries with focal total occlusion of the right and severe stenosis of the left. Patient did have some worsening symptoms. Patient was transferred to [facility]. Patient states he had no cervical intervention but has started on multiple medications that he is not sure what they are but states that he is currently on Eliquis. Patient did have follow-up with his primary care physician and is scheduled to follow-up with neurology in June. Patient states when he woke up this morning he was having some blurred vision in his right eye. The blurred vision in the right eye has completely resolved. Patient states also for short period time he had some blurred vision in the left eye and had tunnel vision to left eye but states this is also since resolved. Upon arrival to the ED patient was sent to CT/CTA brain carotid Related Data Home Medications Medication Instructions Recorded Confirmed amlodipine 5 mg tablet 5 mg PO DAILY 04/21/23 04/21/23 hydrochlorothiazide 25 mg tablet 25 mg PO DAILY 04/21/23 04/21/23 Allergies Allergy/AdvReac Type Severity Reaction Status Date / Time No Known Allergies Allergy Verified 05/10/23 10:08 Review of Systems Review of Systems: All systems reviewed & are unremarkable except as noted in HPI and below PMFSH Past Medical History Medical History Post covid-19 condition, unspecified Sudden loss of vision Social History Social History Smoking status: Never smoker Alcohol intake: never Substance use: never Substance use type: does not use Lack of Transportation: No Lack of Food: Never True Current Housing: I Have Housing Concerned About Future Housing: No Difficulty Paying Gas/Electric Bills: No Difficulty Paying for Meds: No Currently Unemployed: No Education: Associate Degree Difficulty w/ Childcare or Family Care: No Spiritual care concerns: No Exam Narrative: APPEARANCE: Well appearing, no pain, no distress, well-nourished. HEAD: normocephalic, atraumatic. EYES: PERRLA/EOMI, conjunctivae clear. No visual field deficit NOSE: Normal no drainage EARS:TMS clear with good light reflex. THROAT: Pharynx clear, no exudate. NECK: Supple. No adenopathy, no masses. RESPIRATORY: Airway patent, respirations nonlabored. Clear to auscultation bilaterally, no rales, rhonchi, wheezing. CARDIOVASCULAR: Regular rate and rhythm without murmurs rubs or gallops. ABDOMINAL: Soft, nontender, nondistended, normal bowel sounds MUSCULOSKELETAL: Moves all extremities. Strength/ROM intact, No edema, No calf tenderness. NEURO: Alert. Cranial nerves II through XII intact. Grossly intact, no drift, no ataxia, normal strength and reflexes SKIN: Warm, dry. Normal Color Course Course Emergency Course: 37-year-old male present emergency department for evaluation of visual changes. Patient was initially seen on 04/20 for evaluation of vision changes and was diagnosed with a vertebral artery dissection. Patient has been compliant with his medications but states he had vision changes this morning. At time of examination patient reports that his vision changes are resolved. CT without contrast showed a known cerebellar infarct. CTA showed known vertebral artery dissection with possible improvement of the distal right vertebral artery. Case was discussed with neurology at [facility], Dr. Melara, they were comfortable with the work-up and had no suggestions on medication changes. They recommended that he
[2023-05-10 09:48] LABS: Estimated Glomerular Filt Rate > 60
[2023-05-10 09:58] LABS: Alanine Aminotransferase 64 U/L (6-50); Alkaline Phosphatase 79 U/L (38-126); Anion Gap 6 mmol/L (8-16); Aspartate Amino Transferase 45 U/L (17-59); Bilirubin,Total 0.9 mg/dL (0.2-1.3); Blood Urea Nitrogen 14 mg/dL (9-20); Calcium 9.2 mg/dL (8.4-10.2); Carbon Dioxide 32 mmol/L (22-30); Chloride 101 mmol/L (98-107); Estimated Glomerular Filt Rate > 60; Glucose 103 mg/dL (65-110); Potassium 4.5 mmol/L (3.4-5.0); Sodium 139 mmol/L (137-145)
[2023-05-10 10:01] VITALS: BP 134/92; PULSE 97; RESP 15; O2SAT 100
[2023-05-10 10:02] VITALS: BP 134/92; PULSE 102; RESP 15; O2SAT 100
[2023-05-10 10:03] VITALS: PULSE 98; RESP 17; O2SAT 99
[2023-05-10 10:06] LABS: Basophils Absolute Auto 0.1 K/mm3 (0.0-0.1); Basophils Percent Auto 0.5 % (0.2-1.2); Eosinophils Absolute Auto 0.2 K/mm3 (0-0.3); Eosinophils Percent Auto 2.3 % (0-4.4); Hematocrit 40.3 % (42.0-52.0); Hemoglobin 13.5 g/dL (14.0-18.0); Immature Granulocyte Absolute 0.03 K/mm3 (0.00-0.031); Immature Granulocyte Percent A 0.3 % (0-0.5); Lymphocytes Absolute Auto 1.41 K/mm3 (0.9-3.2); Mean Corpuscular HGB Conc 33.5 g/dl (32-36); Mean Corpuscular Hemoglobin 30.1 pg (26-34); Monocytes Absolute Auto 0.5 K/mm3 (0.1-0.6); Monocytes Percent Auto 5.2 % (2.6-8.5); Neutrophils Absolute Auto 7.2 K/mm3 (1.3-6.7); Neutrophils Percent Auto 76.7 % (45.5-73.1); Platelet Count Result 285 k/mm3 (150-375); Red Blood Count 4.48 M/mm3 (4.6-6.20); White Blood Count 9.4 K/mm3 (4.5-10.0)
[2023-05-10 10:07] VITALS: BP 134/92; PULSE 96; RESP 18; O2SAT 100
[2023-05-10 10:22] LABS: INR 1.3; Partial Thromboplastin Time 31.1 SECONDS (22.3-36.8); Prothrombin Time 17.1 Seconds (11.1-14.7)
[2023-05-10 10:40] LABS: Appearance Urine Clear (Clear); Bilirubin Urine Negative (Negative); Blood Urine Negative (Negative); Color Urine Yellow (Yellow); Glucose Urine UA Negative (Negative); Ketones Urine Negative (Negative); Leukocyte Esterase Ur Negative LEU/UL (Negative); Nitrate Urine Negative (Negative); Protein Urine Negative (Negative); Urobilinogen Urine 0.2 mg/dL (<2.0)
[2023-05-10 10:55] LABS: Add Urine Microscopic? NO; Specific Grav Ur 1.057 (1.001-1.035)
[2023-05-10 11:15] VITALS: BP 126/89; PULSE 95; RESP 18; O2SAT 99
[2023-05-10 12:00] VITALS: BP 127/88; PULSE 97; RESP 17; O2SAT 99
== END 2023-05-10 12:04 | disposition home or self-care (01) ==
PROVIDERS: Emergency Provider Emergency Medicine
DX: H53.9 Unspecified visual disturbance (principal); Z86.73 Personal history of transient ischemic attack (TIA), and cerebral infarction without residual deficits; Z79.01 Long term (current) use of anticoagulants
CPT/HCPCS: 36415; 70450; 70496; 70498; 80053; 81003; 82948; 85025; 85610; 85730; 93005; 99284; Q9967